=== PATIENT | male | born 1935 | race Caucasian/White ===

== ENCOUNTER 2017-03-03 21:38 | Inpatient (IN) | payer MEDICARE, BC ==
[~2017-03-03] VITALS: Ht 172.7 cm; Wt 79.4 kg
[2017-03-03 22:30] VITALS: BP 112/70
[2017-03-03 23:17] LABS: LYMPHOCYTES % (AUTO) 8.5 % (20.0-45.0); MEAN CORPUSCULAR HEMOGLOBIN 29.1 PG (27.0-31.0); MEAN CORPUSCULAR HGB CONC 31.4 G/DL (32.0-36.0); MEAN CORPUSCULAR VOLUME 93 FL (80-99); MEAN PLATELET VOLUME 6.5 FL (6.5-10.1); MONOCYTES % (AUTO) 16.1 % (1.0-10.0); NEUTROPHILS % (AUTO) 73.4 % (45.0-75.0); PLATELET COUNT 286 K/UL (150-450); RED BLOOD COUNT 4.45 M/UL (4.70-6.10); RED CELL DISTRIBUTION WIDTH 17.3 % (11.6-14.8)
[2017-03-03 23:18] LABS: ANION GAP 9 mmol/L (5-15); CALCIUM 8.9 MG/DL (8.5-10.1); CARBON DIOXIDE 23 MMOL/L (21-32); CHLORIDE 104 MMOL/L (98-107); CREATININE 1.3 MG/DL (0.55-1.30); POTASSIUM 4.4 MMOL/L (3.5-5.1); SODIUM 136 MMOL/L (136-145)
[2017-03-03 23:31] LABS: ALANINE AMINOTRANSFERASE 65 U/L (12-78); ALBUMIN/GLOBULIN RATIO 0.5 (1.0-2.7); ASPARTATE AMINO TRANSFERASE 27 U/L (15-37); CKMB 2.4 NG/ML (0.0-3.6); MAGNESIUM 1.9 MG/DL (1.8-2.4); TOTAL PROTEIN 6.2 G/DL (6.4-8.2)
[2017-03-04] VITALS (8 sets, daily range): BP systolic 103–151; BP diastolic 47–89
[2017-03-04 01:43] LABS: APPEARANCE,URINE CLEAR; KETONES,URINE NEGATIVE (NEGATIVE); NITRITE,URINE NEGATIVE (NEGATIVE); PH,URINE 6.5 (4.5-8.0); PROTEIN,URINE NEGATIVE (NEGATIVE); UROBILINOGEN,URINE NORMAL MG/DL (0.0-1.0)
[2017-03-04 01:46] LABS: LEUKOCYTE ESTERASE ,URINE NEGATIVE (NEGATIVE)
--- NOTE | 2017-03-04 01:59 | Emergency Room Report ---
History of Present Illness General Chief Complaint: Dyspnea/Respdistress Source: Patient, Family Member, Medical Record Present Illness HPI Patient is an 81-year-old male who presented after increased difficulty breathing from group home. The patient had prior history of multiple myeloma. He had recently been having increased difficulty breathing. The patient was noted to have desaturation to approximately 85%. The patient does not normally use oxygen. He had a previous history of steroid use during hospitalizations. He had previously been on Revlimid but had relapsed afterward. He had been at rehabilitation Center for deconditioning after fracture. He was noted to have bilateral lower extremity weakness of uncertain etiology. He was noted to have prior lesions in his lumbar spine Allergies: Coded Allergies: No Known Allergies (Unverified , 03/03/17) Patient History Past Medical History: see triage record Reviewed Nursing Documentation: PMH: Agreed, PSxH: Agreed Nursing Documentation-PMH Hx Hypertension: Yes Review of Systems All Other Systems: negative except mentioned in HPI Physical Exam Vital Signs Date Time Temp Pulse Resp B/P (MAP) Pulse Ox O2 Delivery O2 Flow Rate FiO2 03/03/17 21:30 98.6 100 16 126/63 96 Non-Rebreather 03/03/17 23:15 50 Sp02 EP Interpretation: reviewed, normal General Appearance: alert, moderate distress, Chronically Ill Head: atraumatic ENT: normal ENT inspection, hearing grossly normal, normal voice Neck: normal inspection, full range of motion, supple, no bony tend Respiratory: normal inspection, lungs clear, normal breath sounds, no respiratory distress, no retraction, no wheezing Cardiovascular #1: regular rate, rhythm, no edema Gastrointestinal: normal inspection, normal bowel sounds, non tender, soft, no guarding, no hernia Genitourinary: no CVA tenderness Musculoskeletal: normal inspection, back normal, normal range of motion Neurologic: normal inspection, alert, responsive, speech normal Psychiatric: normal inspection, judgement/insight normal, mood/affect normal Skin: normal inspection, normal color, no rash Medical Decision Making Diagnostic Impression: Primary Impression: Hypoxemia Additional Impression: Multiple myeloma ER Course Patient presented for shortness of breath.Differential included but was not limited to anemia, pneumonia, pneumothorax, myocardial infarction, pericardial effusion, congestive heart failure, acidosis. Because of complexity of patient' s case laboratory testing and imaging studies were ordered. The chest x-ray one view interpreted by me showed a left lung infiltrate versus effusion. patient started on BiPAP. Lower extremity ultrasound showed no evidence of DVT. Dr. Saran Avila was contacted for inpatient management due to panel physician Labs Test 03/03/17 22:45 03/04/17 01:00 White Blood Count 6.0 K/UL (4.8-10.8) Red Blood Count 4.45 M/UL (4.70-6.10) Hemoglobin 13.0 G/DL (14.2-18.0) Hematocrit 41.3 % (42.0-52.0) Mean Corpuscular Volume 93 FL (80-99) Mean Corpuscular Hemoglobin 29.1 PG (27.0-31.0) Mean Corpuscular Hemoglobin Concent 31.4 G/DL (32.0-36.0) Red Cell Distribution Width 17.3 % (11.6-14.8) Platelet Count 286 K/UL (150-450) Mean Platelet Volume 6.5 FL (6.5-10.1) Neutrophils (%) (Auto) 73.4 % (45.0-75.0) Lymphocytes (%) (Auto) 8.5 % (20.0-45.0) Monocytes (%) (Auto) 16.1 % (1.0-10.0) Eosinophils (%) (Auto) 0.0 % (0.0-3.0) Basophils (%) (Auto) 2.0 % (0.0-2.0) Sodium Level 136 MMOL/L (136-145) Potassium Level 4.4 MMOL/L (3.5-5.1) Chloride Level 104 MMOL/L (98-107) Carbon Dioxide Level 23 MMOL/L (21-32) Anion Gap 9 mmol/L (5-15) Blood Urea Nitrogen 26 mg/dL (7-18) Creatinine 1.3 MG/DL (0.55-1.30) Estimat Glomerular Filtration Rate mL/min (>60) Glucose Level 124 MG/DL (74-106) Lactic Acid Level 1.40 mmol/L (0.66-2.22) Calcium Level 8.9 MG/DL (8.5-10.1) Phosphorus Level 4.0 MG/DL (2.5-4.9) Magnesium Level 1.9 MG/DL (1.8-2.4) Total Bilirubin 0.9 MG/DL (0.2-1.0) Aspartate Amino Transf (AST/SGOT) 27 U/L (15-37) Alanine Aminotransferase (ALT/SGPT) 65 U/L (12-78) Alkaline Phosphatase 70 U/L (46-116) Total Creatine Kinase 36 U/L (26-308) Creatine Kinase MB 2.4 NG/ML (0.0-3.6) Creatine Kinase MB Relative Index 6.6 Troponin I 0.017 ng/mL (0.000-0.056) Pro-B-Type Natriuretic Peptide 1495 pg/mL (0-125) Total Protein 6.2 G/DL (6.4-8.2) Albumin 2.1 G/DL (3.4-5.0) Globulin 4.1 g/dL Albumin/Globulin Ratio 0.5 (1.0-2.7) Urine Color Yellow Urine Appearance Clear Urine pH 6.5 (4.5-8.0) Urine Specific [place] 1.005 (1.005-1.035) Urine Protein Negative (NEGATIVE) Urine Glucose (UA) Negative (NEGATIVE) Urine Ketones Negative (NEGATIVE) Urine Occult Blood Negative (NEGATIVE) Urine Nitrite Negative (NEGATIVE) Urine Bilirubin Negative (NEGATIVE) Urine Urobilinogen Normal MG/DL (0.0-1.0) Urine Leukocyte Esterase Negative (NEGATIVE) EKG Diagnostic Results Rate: normal Rhythm: other - atrial bigeminy ST Segments: no acute changes Last Vital Signs Date Time Temp Pulse Resp B/P (MAP) Pulse Ox O2 Delivery O2 Flow Rate FiO2 03/04/17 00:40 98.4 100 26 107/59 98 Bi-pap 50 Status: unchanged Disposition: ADMITTED INPATIENT Condition: Stable Referrals: NON PHYSICIAN (PCP) Luis Alfredo Butt Mar 04, 2017 01:58
[2017-03-04] MEDS ORDERED: DUONEB 0.5-3(2.53 ML HHN (02:30)
[2017-03-04] MEDS ORDERED: LIPOIC ACID1 GM MC (02:30)
[2017-03-04] MEDS ORDERED: POMALYST2 MG PO (02:30)
[2017-03-04] MEDS ORDERED: HEPARIN SO5000 UNIT2 SUBQ (02:30)
[2017-03-04] MEDS ORDERED: COLACE100 MG ORAL (02:30)
[2017-03-04] MEDS ORDERED: NORCO 5-325 TA1 EAC1 ORAL (02:30)
[2017-03-04] MEDS ORDERED: PROTONIX40 MG ORAL (02:30)
[2017-03-04] MEDS ORDERED: ZYPREXA5 MG ORAL (02:30)
[2017-03-04] MEDS ORDERED: ACETAMINOPHEN325 M1 ORAL (02:30)
[2017-03-04] MEDS ORDERED: BENZONATATE100 MG ORAL (02:30)
[2017-03-04] MEDS ORDERED: ENSURE LIQUID237 ML PO (02:30)
[2017-03-04] MEDS ORDERED: TRAZODONE HCL50 MG ORAL (02:30)
[2017-03-04] MEDS ORDERED: ASPIRIN81 MG ORAL (02:30)
[2017-03-04] MEDS ORDERED: MIRALAX17 G2 ORAL (02:30)
[2017-03-04] MEDS ORDERED: CYANOCOBALAMIN5 GM MC (02:30)
[2017-03-04] MEDS ORDERED: ALUM-MAG HYDRO360 ML PO (02:30)
[2017-03-04] MEDS ORDERED: ATORVASTATIN CA20 MG ORAL (02:30)
[2017-03-04] MEDS ORDERED: CLARITHROMYCIN500 MG PO (02:30)
[2017-03-04] MEDS ORDERED: HYDRALAZINE HCL25 M1 ORAL (02:30)
[2017-03-04] MEDS ORDERED: MEDROL4 MG ORAL (02:30)
[2017-03-04] MEDS ORDERED: DULCOLAX10 MG RC (02:30)
[2017-03-04] MEDS ORDERED: OCEAN45 ML NASAL (04:45)
[2017-03-04] MEDS ORDERED: CYANOCOBAL1000 MCG/M SQ (04:45)
[2017-03-04] MEDS ORDERED: SENNA S TABLET1 EAC1 PO (04:45)
[2017-03-04] MEDS ORDERED: GABAPENTIN100 MG ORAL (04:45)
[2017-03-04] MEDS ORDERED: MECLIZINE HCL25 MG ORAL (04:45)
[2017-03-04] MEDS ORDERED: alpha-lipoic acid PO (04:45)
[2017-03-04] MEDS ORDERED: BOOST237 ML PO (04:45)
[2017-03-04] MEDS ORDERED: Milk of Magnesia 30ml Ud ORAL PRN (06:00)
[2017-03-04] MEDS ORDERED: D5 1/2NS 1,000 ML IV SCH (06:57)
[2017-03-04] MEDS: Albuterol/Ipratropium 3ml neb HHN SCH ×3 (07:31→19:20)
--- NOTE | 2017-03-04 08:31 | History & Physical ---
History and Physical History & Physicial HP dictated # [id number] CHE DAO Mar 04, 2017 08:31
[2017-03-04] MEDS: cefTRIAXone 1 GM in D5W 55 ML IV SCH (08:40)
[2017-03-04] MEDS: Aspirin Baby 81mg ORAL SCH (08:40)
--- NOTE | 2017-03-04 12:15 | Wound Care Consultation ---
Wound Assessment Wound Assessment #1: Wound Number: 1 Wound Present on Admission: Yes New Wound: No Status Change of Wound: No Wound Location Body Site Modif: left Wound Location Body Site: elbow Wound Type: traumatic injury - skin tear with out flap Calvin Test: Does not Calvin Wound Thickness: Full Thickness Wound Length: 1.0 Wound Width: 1.0 Wound Depth: 0.2 Percent of Wound [place]/Red: 50 Percent of Wound Bed Yellow/Wh: 50 Other Colors Identified: discoloration purple in color near site. Wound Drainage Description: Serosanguineous Wound Drainage Amount: Moderate Wound Drainage Odor: None/Absent Tissue Surrounding Wound: Erythemic Wound General Appearance: Reddened, Draining Wound Assessment #2: Wound Number: 2 Wound Present on Admission: Yes New Wound: No Status Change of Wound: No Wound Location Body Site: other - sacrococcygeal Wound Type: pressure ulcer Calvin Test: Does not Calvin Pressure Ulcer Stage: Deep Tissue Injury - suspected Wound Thickness: Full Thickness Wound Length: 2.0 Wound Width: 2.0 Wound Depth: utd Percent of Wound [place]/Red: 100 - deep red. Wound Drainage Amount: None Wound Drainage Odor: None/Absent Tissue Surrounding Wound: Erythemic Wound General Appearance: Reddened - deep Wound Comment #1 Left elbow traumatic injury -full thickness skin tear. surrounding skin noted with discoloration. #2 Sacrococcygeal Suspected deep tissue injury. Recommendation. -Local wound care as ordered. -Apply low air loss SPR mattress for wound and skin management. -Keep clean and dry. -Turn and reposition. -Offload heels and feet. -Avoid shear and friction. -Assess and notify MD for any further change of condition to skin. OSMIN BEASLEY Mar 04, 2017 12:15
[2017-03-04 16:58] LABS: ABG ALLEN TEST POSITIVE; ABG BASE EXCESS 0.7; ABG PCO2 31.7 mmHg (35.0-45.0)
--- NOTE | 2017-03-04 17:00 | History and Physical Report ---
DATE OF ADMISSION: 03/03/2017 CHIEF COMPLAINT: The patient was found to have low oxygen saturation in the fpc facility. HISTORY OF PRESENT ILLNESS: This is an 81-year-old white male, who was recently discharged from [facility] on 01/27/2017 and he was sent to [facility]. I looked at the [facility] records. Apparently, the patient was admitted with chief complaint of weakness and confusion and he was found to have sepsis with urinary tract infection with Proteus mirabilis. Last night, the patient came to the emergency room with reported low oxygen saturation. He was started on BiPAP in the emergency room, was sent to [facility]; however, this morning he refused his BiPAP and he was put on face mask and he is so far doing well with adequate oxygen saturations. PAST MEDICAL HISTORY: Includes history of multiple myeloma with destructive lesion in T-spine, history of CHF, CKD, and nephrolithiasis. The patient is status post left hip fracture in August 2016. MEDICATIONS: Reviewed and reconciled in the EMR. SOCIAL HISTORY: The patient used to live at home with a caregiver and currently he is in a fpc facility. REVIEW OF SYSTEMS: Noncontributory. PHYSICAL EXAMINATION: GENERAL: The patient is an elderly male, in no acute distress. VITAL SIGNS: Blood pressure is 104/47, pulse 70, temperature 97.7 degrees, and respirations 24. HEENT: [place] conjunctivae. Anicteric sclerae. NECK: Supple. LUNGS: Clear to auscultation. HEART: S1 and S2 without murmurs or rubs. ABDOMEN: Soft and nontender. EXTREMITIES: No cyanosis or edema. LABORATORY FINDINGS: The CBC as of admission shows WBC of 6000, hematocrit is 41.3, hemoglobin is 13, and platelets 286,000. Chemistry panel shows serum sodium 136, potassium 4.4, chloride 104, CO2 23, BUN 26, creatinine 1.3, and blood sugar is 124. His lactic acid is 1.4. Troponin was negative. ProBNP was 1495. Albumin is 2.1. ASSESSMENT: This is an 81-year-old white male with a history of multiple myeloma, congestive heart failure, history of chronic kidney disease, recent urinary tract infection at [facility], history of diabetes mellitus, hypertension, who is admitted with respiratory failure, etiology is unknown. He may have congestive heart failure. Unfortunately, I could not find x-ray results from the emergency room. Underlying pneumonia cannot be ruled out. PLAN: The patient is going to be on oxygen and empiric antibiotics. Pulmonary consultation will be obtained. Labs will be followed and adjustment will be made in the patient's regimen. The patient was also started on handheld nebulizers. Following MIPS (merit-based incentive payment system) were done on this patient. Measure #1: Perform hemoglobin A1c at least once in 2017. It was 6.7 on 01/15/2017. Measure #130: Obtain updated review of the patient's current medications. Measure #318: Screen for future fall risk at least once in 2017, it is high. Measure #374: Send report to referring provider. This will be done through EMR. The following improvement activities were done on this patient. 1. Implementation of use of specialists' reports back to referring clinician or group to close referral loop, done through EMR. 2. Provide 07/10 access to eligible clinicians or groups, who have real-time access to the patient's medical records, done through EMR. Saran Avila M.D. DR: PHANI JOB#: [id number] CC:
--- NOTE | 2017-03-04 17:24 | Diagnostic Imaging Report ---
Indication: Reason For Exam: SOB Technique: One view of the chest Comparison: none Findings: There is some atelectasis or focal patchy infiltrate at the left lateral lung base. The remainder of the lungs and pleural spaces are clear. The heart size is normal Impression: Lateral basilar atelectasis or patchy infiltrate
--- NOTE | 2017-03-04 18:00 | Consultation ---
DATE OF CONSULTATION: 03/04/2017 PULMONARY CONSULTATION CONSULTING PHYSICIAN: Migel Ludwig M.D. HISTORY OF PRESENT ILLNESS: The patient is an 81-year-old man, who was admitted by paramedics to the emergency department from a nearby alf because of shortness of breath and low saturation. He was found to have possible pneumonia and CHF. He was given Lasix and antibiotics and has improved. Initially, he was started on BiPAP, but refused that and now he is comfortable on a face mask oxygen delivery system. The caregiver is at the bedside. She reports that he has been in a alf for about a month after admission to [facility]. Yemi's records were reviewed and he had sepsis at that time due to urinary infection. PAST MEDICAL HISTORY: Multiple myeloma; chronic kidney disease; dementia; congestive heart failure with diastolic dysfunction;, hydronephrosis; hypertension; multiple myeloma, on chronic steroid therapy; nephrolithiasis; peripheral neuropathy; and left hip fracture. ALLERGIES: None. MEDICATIONS: Reviewed. He is on Medrol 8 mg every other day. REVIEW OF SYSTEMS: Cannot be obtained. The caregiver reports that he is confused and unable to walk. PHYSICAL EXAMINATION: VITAL SIGNS: The vital signs are stable. There is no high fever. He is not in distress. The saturation is 98% on face mask oxygen. He is overweight. SKIN: Warm and dry. HEENT: Head is normocephalic. NECK: No jugular venous distention. CHEST: Few rales and decreased breath sounds. CARDIAC: Rhythm is regular. ABDOMEN: Soft and nontender. Liver and spleen not felt. EXTREMITIES: No clubbing, cyanosis, or edema. LABORATORY STUDIES: Show creatinine is 1.3, blood sugar 124, natriuretic peptide is 1500, total protein 6.2, albumin 2.1. Lactic acid is normal. Hemoglobin is 13. Platelets and white count are normal. Urinalysis is negative. Chest x-ray reported to show right base effusion and possible infiltrate. IMPRESSION: 1. Respiratory distress due to congestive heart failure. 2. Possible pneumonia. 3. Multiple myeloma, on steroids. 4. Protein-calorie malnutrition. 5. Dementia. 6. Diastolic dysfunction. 7. Chronic kidney disease. PLAN: The patient will be treated with oxygen, respiratory therapy, and antibiotics. We will resume his every other day steroid therapy. Diuretics may be indicated. I will review the x-ray when available and follow closely with you. Migel Ludwig M.D. DR: ISSA JOB#: [id number] CC: Saran Avila M.D.; Fax#: [phone]
--- NOTE | 2017-03-04 18:06 | Cardiology Report ---
APPROVED REPORT EXAM: Two-dimensional and M-mode echocardiogram with Doppler and color Doppler. INDICATION Congestive Heart Failure Technically difficult study due to poor acoustical windows. M-mode measurements not obtainable due to cardiac structure. Normal left ventricular chamber size, systolic function and wall motion. Left ventricular ejection fraction estimated to be 60-65%. Moderate left ventricular hypertrophy. No evidence of pericardial or pleural effusion. All other cardiac chamber sizes are within normal limits. Focal aortic valve sclerosis with adequate cusp excursion. Thickened mitral valve leaflets with normal excursion. Mild mitral annulus and aortic root calcification. Pulmonic valve not well visualized. Normal tricuspid valve structure. IVC is normal in size and collapsible with respiration. A color flow and spectral Doppler study was performed and revealed: Trace aortic regurgitation. Trace mitral regurgitation. Mitral diastolic function not obtainable due to arrhythmia. Trace tricuspid regurgitation.
--- NOTE | 2017-03-04 18:14 | Cardiology Report ---
APPROVED REPORT EKG Measurement Heart [id number] Sinus rhythm with premature atrial complexes Possible Left atrial enlargement Borderline ECG
[2017-03-05 00:51] VITALS: BP 114/57
[2017-03-05] MEDS: Albuterol/Ipratropium 3ml neb HHN SCH ×4 (01:35→19:21)
[2017-03-05 04:00] VITALS: BP 142/76
[2017-03-05] MEDS: cefTRIAXone 1 GM in D5W 55 ML IV SCH (06:01)
[2017-03-05 06:06] LABS: BASOPHILS % (AUTO) 3.3 % (0.0-2.0); MEAN CORPUSCULAR HEMOGLOBIN 31.3 PG (27.0-31.0); MEAN CORPUSCULAR HGB CONC 33.6 G/DL (32.0-36.0); MEAN CORPUSCULAR VOLUME 93 FL (80-99); MEAN PLATELET VOLUME 6.4 FL (6.5-10.1); MONOCYTES % (AUTO) 16.6 % (1.0-10.0); NEUTROPHILS % (AUTO) 68.1 % (45.0-75.0); PLATELET COUNT 302 K/UL (150-450); RED CELL DISTRIBUTION WIDTH 17.7 % (11.6-14.8); WHITE BLOOD COUNT 4.4 K/UL (4.8-10.8)
[2017-03-05 06:32] LABS: ALANINE AMINOTRANSFERASE 52 U/L (12-78); ALBUMIN/GLOBULIN RATIO 0.5 (1.0-2.7); ANION GAP 10 mmol/L (5-15); ASPARTATE AMINO TRANSFERASE 20 U/L (15-37); CALCIUM 9.2 MG/DL (8.5-10.1); CARBON DIOXIDE 24 MMOL/L (21-32); CHLORIDE 105 MMOL/L (98-107); CREATININE 1.3 MG/DL (0.55-1.30); POTASSIUM 4.2 MMOL/L (3.5-5.1); SODIUM 139 MMOL/L (136-145); TOTAL PROTEIN 6.2 G/DL (6.4-8.2)
[2017-03-05 08:00] VITALS: BP 142/78
[2017-03-05] MEDS: Aspirin Baby 81mg ORAL SCH (08:42)
[2017-03-05 12:00] VITALS: BP 139/61
--- NOTE | 2017-03-05 12:06 | General Progress Note ---
Assessment/Plan Problem List: (1) Acute respiratory failure ICD Codes: J96.00 - Acute respiratory failure, unspecified whether with hypoxia or hypercapnia SNOMED: 03458041 (2) Multiple myeloma ICD Codes: C90.00 - Multiple myeloma not having achieved remission SNOMED: 560549047 (3) LVH (left ventricular hypertrophy) ICD Codes: I51.7 - Cardiomegaly SNOMED: 76779662 (4) Pneumonia ICD Codes: J18.9 - Pneumonia, unspecified organism SNOMED: 201019696 Assessment/Plan abxs taper O2 Bronchodilators Discussed with Dr nimco blanca son Subjective Allergies: Coded Allergies: No Known Allergies (Unverified , 03/03/17) Subjective In NAD Objective Last 24 Hour Vital Signs Date Time Temp Pulse Resp B/P (MAP) Pulse Ox O2 Delivery O2 Flow Rate FiO2 03/05/17 11:27 95 4.0 36 03/05/17 08:14 81 20 96 Venturi Mask 14.0 50 03/05/17 08:03 72 18 95 Venturi Mask 12.0 50 03/05/17 08:03 50 03/05/17 08:00 97.7 72 19 142/78 97 Venturi Mask 50 03/05/17 08:00 91 03/05/17 04:00 50 03/05/17 04:00 95 03/05/17 04:00 97.8 71 20 142/76 95 Venturi Mask 03/05/17 01:50 50 03/05/17 01:50 87 20 97 Venturi Mask 14.0 50 03/05/17 01:36 72 18 97 Venturi Mask 12.0 50 03/05/17 00:51 98.4 72 24 114/57 97 Venturi Mask 03/05/17 00:00 95 03/05/17 00:00 50 03/04/17 20:56 98.8 72 20 151/89 97 Venturi Mask 03/04/17 20:00 105 03/04/17 20:00 50 03/04/17 19:34 50 03/04/17 19:34 97 20 95 Venturi Mask 14.0 50 03/04/17 19:20 70 18 98 Venturi Mask 12.0 50 03/04/17 16:45 96 14.0 50 03/04/17 16:00 113 12/19/17 16:00 98.2 102 22 125/69 91 Venturi Mask 50 03/04/17 15:07 95 14.0 50 03/04/17 13:18 91 20 95 Venturi Mask 14.0 50 03/04/17 13:16 92 18 97 Venturi Mask 12.0 50 03/04/17 13:16 50 Intake and Output 03/05/17 03/06/17 19:00 07:00 Intake Total 110 ml Balance 110 ml IV Total 110 ml Laboratory Tests 03/04/17 16:45: Arterial Blood pH 7.483H, Arterial Blood Partial Pressure CO2 31.7L, Arterial Blood Partial Pressure O2 96.7, Arterial Blood HCO3 23.2, Arterial Blood Oxygen Saturation 95.0, Arterial Blood Base Excess 0.7, Edwar Test Positive 03/05/17 04:40: White Blood Count 4.4L, Red Blood Count 4.20L, Hemoglobin 13.1L, Hematocrit 39.0L, Mean Corpuscular Volume 93, Mean Corpuscular Hemoglobin 31.3H, Mean Corpuscular Hemoglobin Concent 33.6, Red Cell Distribution Width 17.7H, Platelet Count 302, Mean Platelet Volume 6.4L, Neutrophils (%) (Auto) 68.1, Lymphocytes (%) (Auto) 12.0L, Monocytes (%) (Auto) 16.6H, Eosinophils (%) (Auto ) 0.0, Basophils (%) (Auto) 3.3H, Sodium Level 139, Potassium Level 4.2, Chloride Level 105, Carbon Dioxide Level 24, Anion Gap 10, Blood Urea Nitrogen 33H, Creatinine 1.3, Estimat Glomerular Filtration Rate , Glucose Level 163H, Calcium Level 9.2, Total Bilirubin 0.5, Aspartate Amino Transf (AST/SGOT) 20, Alanine Aminotransferase (ALT/SGPT) 52, Alkaline Phosphatase 63, Total Protein 6.2L, Albumin 2.0L, Globulin 4.2, Albumin/Globulin Ratio 0.5L Height (Feet): 5 Height (Inches): 8.00 Weight (Pounds): 175 Cardiovascular: normal rate Respiratory/Chest: lungs clear Edema: no edema noted Generalized CHE DAO Mar 05, 2017 12:06
[2017-03-05 16:00] VITALS: BP 136/68
--- NOTE | 2017-03-05 17:45 | Pulmonology Progress Note ---
Assessment/Plan Assessment/Plan 1. Respiratory distress due to congestive heart failure. 2. Pneumonia. 3. Multiple myeloma, on steroids. 4. Protein-calorie malnutrition. 5. Dementia. 6. Diastolic dysfunction. 7. Chronic kidney disease. looks much better CXR reviewed, small infiltrate cont abx, O2, RT disc w CG, Dr Avila Subjective Respiratory: Denies: productive cough, shortness of breath Gastrointestinal/Abdominal: Reports: other - discomfort Allergies: Coded Allergies: No Known Allergies (Unverified , 03/03/17) Objective Last 24 Hour Vital Signs Date Time Temp Pulse Resp B/P (MAP) Pulse Ox O2 Delivery O2 Flow Rate FiO2 03/05/17 16:00 97.7 113 20 136/68 94 Nasal Cannula 4.0 03/05/17 14:54 94 4.0 36 03/05/17 13:08 85 25 95 Nasal Cannula 4.0 36 03/05/17 12:59 95 4.0 36 03/05/17 12:58 84 16 92 Nasal Cannula 4.0 36 03/05/17 12:58 36 03/05/17 12:00 94 03/05/17 12:00 98.4 101 26 139/61 97 Nasal Cannula 4.0 03/05/17 11:27 95 4.0 36 03/05/17 08:14 81 20 96 Venturi Mask 14.0 50 03/05/17 08:03 72 18 95 Venturi Mask 12.0 50 03/05/17 08:03 50 03/05/17 08:00 97.7 72 19 142/78 97 Venturi Mask 50 03/05/17 08:00 91 03/05/17 04:00 50 03/05/17 04:00 95 03/05/17 04:00 97.8 71 20 142/76 95 Venturi Mask 03/05/17 01:50 50 03/05/17 01:50 87 20 97 Venturi Mask 14.0 50 03/05/17 01:36 72 18 97 Venturi Mask 12.0 50 03/05/17 00:51 98.4 72 24 114/57 97 Venturi Mask 03/05/17 00:00 95 03/05/17 00:00 50 03/04/17 20:56 98.8 72 20 151/89 97 Venturi Mask 03/04/17 20:00 105 03/04/17 20:00 50 03/04/17 19:34 50 03/04/17 19:34 97 20 95 Venturi Mask 14.0 50 03/04/17 19:20 70 18 98 Venturi Mask 12.0 50 Intake and Output 03/04/17 03/05/17 19:00 07:00 Intake Total 275 ml Balance 275 ml Intake Oral 220 ml IV Total 55 ml # Voids 2 2 # Bowel Movements 3 3 General Appearance: no acute distress HEENT: atraumatic Respiratory/Chest: lungs clear Cardiovascular: normal rate Abdomen: soft, non tender Microbiology Date/Time Source Procedure Growth Status 03/03/17 23:00 Blood Blood Culture - Preliminary NO GROWTH AFTER 24 HOURS Resulted 03/03/17 22:45 Blood Blood Culture - Preliminary NO GROWTH AFTER 24 HOURS Resulted 03/04/17 00:20 Nasal Nares Influenza Types A,B Antigen (DIONNE) - Final Complete Laboratory Tests 03/05/17 04:40: White Blood Count 4.4L, Red Blood Count 4.20L, Hemoglobin 13.1L, Hematocrit 39.0L, Mean Corpuscular Volume 93, Mean Corpuscular Hemoglobin 31.3H, Mean Corpuscular Hemoglobin Concent 33.6, Red Cell Distribution Width 17.7H, Platelet Count 302, Mean Platelet Volume 6.4L, Neutrophils (%) (Auto) 68.1, Lymphocytes (%) (Auto) 12.0L, Monocytes (%) (Auto) 16.6H, Eosinophils (%) (Auto ) 0.0, Basophils (%) (Auto) 3.3H, Sodium Level 139, Potassium Level 4.2, Chloride Level 105, Carbon Dioxide Level 24, Anion Gap 10, Blood Urea Nitrogen 33H, Creatinine 1.3, Estimat Glomerular Filtration Rate , Glucose Level 163H, Calcium Level 9.2, Total Bilirubin 0.5, Aspartate Amino Transf (AST/SGOT) 20, Alanine Aminotransferase (ALT/SGPT) 52, Alkaline Phosphatase 63, Total Protein 6.2L, Albumin 2.0L, Globulin 4.2, Albumin/Globulin Ratio 0.5L Current Medications Medications (Trade) Dose Ordered Sig/Blanka Route PRN Reason Start Time Stop Time Status Last Admin Dose Admin Acetaminophen (Tylenol) 650 mg Q6H PRN ORAL Fever/Headache/Mild Pain 03/04/17 06:00 04/03/17 05:59 Albuterol/ Ipratropium (Albuterol/ Ipratropium) 3 ml Q6HRT HHN 03/04/17 07:00 03/09/17 06:59 03/05/17 12:57 Aspirin (ASA) 81 mg DAILY ORAL 03/04/17 09:00 04/03/17 08:59 03/05/17 08:42 Atorvastatin Calcium (Lipitor) 10 mg BEDTIME ORAL 03/04/17 21:00 04/03/17 20:59 03/04/17 20:15 Ceftriaxone Sodium 1 gm/ Dextrose 55 ml @ 110 mls/hr Q24H IV 03/04/17 07:00 03/11/17 06:59 03/05/17 06:01 Magnesium Hydroxide (Mom) 30 ml HSPRN PRN ORAL Constipation 03/04/17 06:00 04/03/17 05:59 Methylprednisolone (Medrol) 8 mg EVERY OTHER DAY ORAL 03/04/17 10:30 04/03/17 10:29 03/04/17 11:41 Olanzapine (ZyPREXA) 5 mg BEDTIME ORAL 03/04/17 21:00 04/03/17 20:59 03/04/17 20:15 Ondansetron HCl (Zofran) 4 mg Q6H PRN IVP Nausea & Vomiting 03/04/17 06:00 04/03/17 05:59 FAZAL CHOI Mar 05, 2017 17:44
[2017-03-05 20:00] VITALS: BP 127/68
[2017-03-06 00:05] VITALS: BP 127/85
[2017-03-06] MEDS: Albuterol/Ipratropium 3ml neb HHN SCH ×4 (01:57→18:52)
[2017-03-06 04:00] VITALS: BP 138/86
[2017-03-06 04:44] LABS: BASOPHILS % (AUTO) 2.6 % (0.0-2.0); LYMPHOCYTES % (AUTO) 15.9 % (20.0-45.0); MEAN CORPUSCULAR HEMOGLOBIN 31.2 PG (27.0-31.0); MEAN CORPUSCULAR HGB CONC 33.6 G/DL (32.0-36.0); MEAN CORPUSCULAR VOLUME 93 FL (80-99); MEAN PLATELET VOLUME 6.6 FL (6.5-10.1); MONOCYTES % (AUTO) 11.2 % (1.0-10.0); NEUTROPHILS % (AUTO) 70.3 % (45.0-75.0); PLATELET COUNT 374 K/UL (150-450); RED CELL DISTRIBUTION WIDTH 17.7 % (11.6-14.8); WHITE BLOOD COUNT 7.6 K/UL (4.8-10.8)
[2017-03-06 05:19] LABS: ALANINE AMINOTRANSFERASE 58 U/L (12-78); ALBUMIN/GLOBULIN RATIO 0.5 (1.0-2.7); ANION GAP 8 mmol/L (5-15); ASPARTATE AMINO TRANSFERASE 27 U/L (15-37); CALCIUM 9.2 MG/DL (8.5-10.1); CARBON DIOXIDE 26 MMOL/L (21-32); CHLORIDE 105 MMOL/L (98-107); CREATININE 1.1 MG/DL (0.55-1.30); POTASSIUM 3.9 MMOL/L (3.5-5.1); SODIUM 138 MMOL/L (136-145); TOTAL PROTEIN 6.3 G/DL (6.4-8.2)
[2017-03-06] MEDS: cefTRIAXone 1 GM in D5W 55 ML IV SCH (06:04)
[2017-03-06 08:00] VITALS: BP 161/77
[2017-03-06] MEDS: Aspirin Baby 81mg ORAL SCH (09:24)
--- NOTE | 2017-03-06 11:51 | Diagnostic Imaging Report ---
Indication: Reason For Exam: SOB Technique: One view of the chest Comparison: 03/03/2017 Findings: There is some atelectasis of the left lateral lung base. Lung infiltrates are otherwise clear. Heart size is normal. Findings are unchanged Impression: Unchanged, over one day, findings as above.
[2017-03-06 12:00] VITALS: BP 156/79
--- NOTE | 2017-03-06 13:05 | General Progress Note ---
Assessment/Plan Problem List: (1) Acute respiratory failure ICD Codes: J96.00 - Acute respiratory failure, unspecified whether with hypoxia or hypercapnia SNOMED: 56552474 (2) Multiple myeloma ICD Codes: C90.00 - Multiple myeloma not having achieved remission SNOMED: 294470131 (3) LVH (left ventricular hypertrophy) ICD Codes: I51.7 - Cardiomegaly SNOMED: 68947880 (4) Pneumonia ICD Codes: J18.9 - Pneumonia, unspecified organism SNOMED: 311867210 Assessment/Plan po Zithromax Bronchodilators Discussed with Dr rinaldi and son Dc today PT HAS MRSA AND VRE BOTH COLONIZED Subjective Allergies: Coded Allergies: No Known Allergies (Unverified , 03/03/17) Subjective Not SOB Objective Last 24 Hour Vital Signs Date Time Temp Pulse Resp B/P (MAP) Pulse Ox O2 Delivery O2 Flow Rate FiO2 03/06/17 08:38 102 18 95 Nasal Cannula 4.0 36 03/06/17 08:20 96 20 94 Nasal Cannula 4.0 36 03/06/17 07:57 115 03/06/17 04:00 106 03/06/17 04:00 97.9 90 23 138/86 94 Nasal Cannula 4.0 03/06/17 02:06 36 03/06/17 02:06 83 17 98 Nasal Cannula 4.0 36 03/06/17 01:57 71 16 97 Nasal Cannula 4.0 36 03/06/17 00:05 97.5 77 24 127/85 95 Nasal Cannula 4.0 03/06/17 00:00 105 03/05/17 20:00 94 03/05/17 20:00 96.8 105 22 127/68 94 Nasal Cannula 4.0 03/05/17 19:30 36 03/05/17 19:30 88 25 95 Nasal Cannula 4.0 36 03/05/17 19:22 89 16 97 Nasal Cannula 4.0 36 03/05/17 16:00 97.7 113 20 136/68 94 Nasal Cannula 4.0 03/05/17 16:00 103 03/05/17 14:54 94 4.0 36 03/05/17 13:08 85 25 95 Nasal Cannula 4.0 36 Intake and Output 03/05/17 03/06/17 19:00 07:00 Intake Total 650 ml 255 ml Balance 650 ml 255 ml Intake Oral 540 ml 200 ml IV Total 110 ml 55 ml # Voids 3 3 Laboratory Tests 03/06/17 03:55: White Blood Count 7.6#, Red Blood Count 4.20L, Hemoglobin 13.1L, Hematocrit 38.9L, Mean Corpuscular Volume 93, Mean Corpuscular Hemoglobin 31.2H, Mean Corpuscular Hemoglobin Concent 33.6, Red Cell Distribution Width 17.7H, Platelet Count 374, Mean Platelet Volume 6.6, Neutrophils (%) (Auto) 70.3, Lymphocytes (%) (Auto) 15.9L, Monocytes (%) (Auto) 11.2H, Eosinophils (%) (Auto ) 0.0, Basophils (%) (Auto) 2.6H, Sodium Level 138, Potassium Level 3.9, Chloride Level 105, Carbon Dioxide Level 26, Anion Gap 8, Blood Urea Nitrogen 31H, Creatinine 1.1, Estimat Glomerular Filtration Rate , Glucose Level 101, Calcium Level 9.2, Total Bilirubin 0.5, Aspartate Amino Transf (AST/SGOT) 27, Alanine Aminotransferase (ALT/SGPT) 58, Alkaline Phosphatase 67, Total Protein 6.3L, Albumin 2.0L, Globulin 4.3, Albumin/Globulin Ratio 0.5L Height (Feet): 5 Height (Inches): 8.00 Weight (Pounds): 175 Cardiovascular: normal rate Respiratory/Chest: lungs clear Edema: no edema noted CHE Ortiz Mar 06, 2017 13:05
[2017-03-06] MEDS ORDERED: DUONEB 0.5-3(2.53 ML HHN (13:10)
[2017-03-06] MEDS ORDERED: AZITHROMYCIN250 MG ORAL (13:10)
[2017-03-06] MEDS ORDERED: D5 1/2NS 1000ml IV ONE (15:55)
[2017-03-06] MEDS ORDERED: Tubing IV Secondary IV ONE (15:55)
[2017-03-06 16:00] VITALS: BP 132/82
--- NOTE | 2017-03-06 16:45 | Pulmonology Progress Note ---
Assessment/Plan Assessment/Plan 1. Respiratory distress due to congestive heart failure, pneumonia. 2. Pneumonia. 3. Multiple myeloma, on steroids. 4. Protein-calorie malnutrition. 5. Dementia. 6. Diastolic dysfunction. 7. Chronic kidney disease. dc plan to SNF CXR no change cont abx, O2, RT disc w CG, Dr Avila Subjective Respiratory: Denies: productive cough, shortness of breath Allergies: Coded Allergies: No Known Allergies (Unverified , 03/03/17) Objective Last 24 Hour Vital Signs Date Time Temp Pulse Resp B/P (MAP) Pulse Ox O2 Delivery O2 Flow Rate FiO2 03/06/17 13:23 82 18 97 Nasal Cannula 4.0 36 03/06/17 13:16 79 18 95 Nasal Cannula 4.0 36 03/06/17 12:00 98.6 20 156/79 97 Nasal Cannula 4.0 03/06/17 11:44 106 03/06/17 08:38 102 18 95 Nasal Cannula 4.0 36 03/06/17 08:20 96 20 94 Nasal Cannula 4.0 36 03/06/17 08:00 98.9 20 161/77 97 Nasal Cannula 4.0 03/06/17 07:57 115 03/06/17 04:00 106 03/06/17 04:00 97.9 90 23 138/86 94 Nasal Cannula 4.0 03/06/17 02:06 36 03/06/17 02:06 83 17 98 Nasal Cannula 4.0 36 03/06/17 01:57 71 16 97 Nasal Cannula 4.0 36 03/06/17 00:05 97.5 77 24 127/85 95 Nasal Cannula 4.0 03/06/17 00:00 105 03/05/17 20:00 94 03/05/17 20:00 96.8 105 22 127/68 94 Nasal Cannula 4.0 03/05/17 19:30 36 03/05/17 19:30 88 25 95 Nasal Cannula 4.0 36 03/05/17 19:22 89 16 97 Nasal Cannula 4.0 36 Intake and Output 03/05/17 03/06/17 19:00 07:00 Intake Total 650 ml 255 ml Balance 650 ml 255 ml Intake Oral 540 ml 200 ml IV Total 110 ml 55 ml # Voids 3 3 General Appearance: no acute distress HEENT: atraumatic Respiratory/Chest: lungs clear Cardiovascular: normal rate Microbiology Date/Time Source Procedure Growth Status 03/03/17 23:00 Blood Blood Culture - Preliminary NO GROWTH AFTER 48 HOURS Resulted 03/03/17 22:45 Blood Blood Culture - Preliminary NO GROWTH AFTER 48 HOURS Resulted 03/04/17 00:30 Nasal Nares MRSA Culture - Final Staphylococcus Aureus - Mrsa Complete 03/04/17 00:20 Nasal Nares Influenza Types A,B Antigen (DIONNE) - Final Complete 03/04/17 00:30 Rectum VRE Culture - Final Enterococcus Faecalis - Vre Complete Laboratory Tests 03/06/17 03:55: White Blood Count 7.6#, Red Blood Count 4.20L, Hemoglobin 13.1L, Hematocrit 38.9L, Mean Corpuscular Volume 93, Mean Corpuscular Hemoglobin 31.2H, Mean Corpuscular Hemoglobin Concent 33.6, Red Cell Distribution Width 17.7H, Platelet Count 374, Mean Platelet Volume 6.6, Neutrophils (%) (Auto) 70.3, Lymphocytes (%) (Auto) 15.9L, Monocytes (%) (Auto) 11.2H, Eosinophils (%) (Auto ) 0.0, Basophils (%) (Auto) 2.6H, Sodium Level 138, Potassium Level 3.9, Chloride Level 105, Carbon Dioxide Level 26, Anion Gap 8, Blood Urea Nitrogen 31H, Creatinine 1.1, Estimat Glomerular Filtration Rate , Glucose Level 101, Calcium Level 9.2, Total Bilirubin 0.5, Aspartate Amino Transf (AST/SGOT) 27, Alanine Aminotransferase (ALT/SGPT) 58, Alkaline Phosphatase 67, Total Protein 6.3L, Albumin 2.0L, Globulin 4.3, Albumin/Globulin Ratio 0.5L Current Medications Medications (Trade) Dose Ordered Sig/Blanka Route PRN Reason Start Time Stop Time Status Last Admin Dose Admin Acetaminophen (Tylenol) 650 mg Q6H PRN ORAL Fever/Headache/Mild Pain 03/04/17 06:00 04/03/17 05:59 Al Hydroxide/Mg Hydroxide (Mylanta) 30 ml Q6H PRN ORAL Abdominal cramps 03/05/17 18:00 04/04/17 17:59 Albuterol/ Ipratropium (Albuterol/ Ipratropium) 3 ml Q6HRT HHN 03/04/17 07:00 03/09/17 06:59 03/06/17 13:17 Aspirin (ASA) 81 mg DAILY ORAL 03/04/17 09:00 04/03/17 08:59 03/06/17 09:24 Atorvastatin Calcium (Lipitor) 10 mg BEDTIME ORAL 03/04/17 21:00 04/03/17 20:59 03/05/17 20:31 Ceftriaxone Sodium 1 gm/ Dextrose 55 ml @ 110 mls/hr Q24H IV 03/04/17 07:00 03/11/17 06:59 03/06/17 06:04 Magnesium Hydroxide (Mom) 30 ml HSPRN PRN ORAL Constipation 03/04/17 06:00 04/03/17 05:59 Methylprednisolone (Medrol) 8 mg EVERY OTHER DAY ORAL 03/04/17 10:30 04/03/17 10:29 03/06/17 09:25 Olanzapine (ZyPREXA) 5 mg BEDTIME ORAL 03/04/17 21:00 04/03/17 20:59 03/05/17 20:31 Ondansetron HCl (Zofran) 4 mg Q6H PRN IVP Nausea & Vomiting 03/04/17 06:00 04/03/17 05:59 FAZAL CHOI Mar 06, 2017 16:45
--- NOTE | 2017-03-07 08:41 | Discharge Summary ---
Discharge Summary Hospital Course Date of Admission Mar 03, 2017 at 23:39 Date of Discharge Mar 06, 2017 at 19:30 Admitting Diagnosis SHORTNESS OF BREATH, INFLUENZA HPI Richi Kumar is a 81 year old male who was admitted on Mar 03, 2017 at 23:39 for Shortness Of Breath, Influenza Hospital Course [id number] Discharge Discharge Disposition Patient was discharged to [facility] (04) Discharge Diagnoses: Elise Castellanos NP Mar 07, 2017 08:41
--- NOTE | 2017-03-08 00:45 | Discharge Summary 2 SIG ---
DATE OF ADMISSION: 03/03/2017 DATE OF DISCHARGE: 03/06/2017 STAFFING RN: Migel Ludwig M.D. BRIEF HOSPITAL COURSE: The patient is an 81-year-old male, who was recently discharged from [facility] on 01/27/2017 and he was sent to [facility]. Apparently, he had weakness and confusion and was found to have sepsis with urinary tract infection with Proteus mirabilis. He presented to ED due to reported low oxygen saturation, approximately 85% at the shelter. On evaluation at ED, chest x-ray showed left lung infiltrate. Venous duplex of lower extremity was negative for DVT. He was initially started on BiPAP at ED. However, following morning, refused BiPAP and was placed on a face mask. 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 He is status post left hip fracture in August 2016. He was given oxygen supplementation and was started on empiric antibiotics and was given nebulizer treatment. He was seen by Dr. Ludwig and was resumed on steroids every other day. Repeat chest x-ray showed a small infiltrate. Blood culture did not isolate any growth. Influenza type A and B was negative. IV Rocephin was was transitioned to p.o. Azithromycin. Echocardiogram done showed ejection fraction of 60% to 65% with normal left ventricular chamber size, systolic function, and wall motion. He came in with sacrococcygeal suspected DTI and a left elbow traumatic injury. Wound care was provided. He was eventually discharged to [facility]. FINAL DIAGNOSES: 1. Acute respiratory failure. 2. Multiple myeloma. 3. Left ventricular hypertrophy. 4. Pneumonia. 5. Dementia. 6. Protein-calorie malnutrition. 7. Diastolic dysfunction. DISPOSITION: The patient was discharged to SNF. DISCHARGE MEDICATIONS: Refer to medication list. Continue with azithromycin 250 mg daily for five days and DuoNeb treatment 3 mL inhalation q.6 h. Saran Avila M.D. I have been assigned to dictate discharge summary on this account and I was not involved in the patient's management. Elise Castellanos N.P. DR: VIDAL JOB#: [id number] CC: PRATIBHA
== END 2017-03-06 19:30 | DRG 193 ==
LOC: EDBD 21:38 → EMR 21:57 → 2W 23:39 → EDBEDREQSVC 23:58 → EDBEDREQ 03-04 00:15 → 2W 03-05 08:25
PROC: 5A09357 Assistance with Respiratory Ventilation, Less than 24 Consecutive Hours, Continuous Positive Airway Pressure (ICD-10-PCS; principal; 2017-03-03)
DX: J18.9 Pneumonia, unspecified organism (principal); J96.00 Acute respiratory failure, unspecified whether with hypoxia or hypercapnia; I13.0 Hypertensive heart and chronic kidney disease with heart failure and stage 1 through stage 4 chronic kidney disease, or unspecified chronic kidney disease; E46 Unspecified protein-calorie malnutrition; C90.00 Multiple myeloma not having achieved remission; F03.90 Unspecified dementia, unspecified severity, without behavioral disturbance, psychotic disturbance, mood disturbance, and anxiety; I50.9 Heart failure, unspecified; G62.9 Polyneuropathy, unspecified; N18.9 Chronic kidney disease, unspecified; Z22.322 Carrier or suspected carrier of Methicillin resistant Staphylococcus aureus
CPT/HCPCS: 36415; 36600; 71010; 80053; 81003; 82550; 82553; 82803; 83605; 83735; 83880; 84100; 84484; 85025; 86710; 87040; 87081; 93005; 93306; 93970; 94640; 94660; 94664; 99285; J7620